=== PATIENT | female | born 1935 | race Caucasian/White ===

== ENCOUNTER 2017-12-22 14:28 | Emergency (ER) | payer MEDICARE, OTHER ==
[~2017-12-22] VITALS: Ht 165.1 cm; Wt 77.0 kg
[2017-12-22 14:52] VITALS: BP 120/63; PULSE 84; RESP 16; TEMP 98.5; O2SAT 100
--- NOTE | 2017-12-22 15:15 | RADRPT ---
EXAM DATE/TIME: 12/22/2017 15:11 [facility] COMPARISON: No previous studies available for comparison. INDICATIONS : Syncope with chest pain and shortness of breath. MEDICAL HISTORY : None. SURGICAL HISTORY : None. ENCOUNTER: Initial ACUITY: 2 days PAIN SCORE: 6/10 LOCATION: middle chest. FINDINGS: PA and lateral views of the chest shows some deformity to the right infralateral ribs with underlying pleural thickening. The lungs are otherwise clear. They are hyperinflated. No effusions or infiltrat es. Heart is normal in size. Scoliotic spine with compression fracture at the thoracolumbar junction. There is near vertebra plana. CONCLUSION: 1. Prior trauma involving the inferior right chest. 2. Hyperinflation suggesting COPD. 3. Age-indeterminate compression fracture at the thoracolumbar junction. Maurilio Gomez Jr., MD on December 22, 2017 at 15:11 Board Certified Radiologist. This report was verified electronically.
[2017-12-22 17:29] LABS: AUTOMATED NEUTROPHIL # 4.7 TH/MM3 (1.8-7.7); BASOPHIL # 0.1 TH/MM3 (0-0.2); BASOPHIL % 0.8 % (0.0-2.0); EOSINOPHIL # 0.2 TH/MM3 (0-0.4); EOSINOPHIL % 2.4 % (0.0-4.0); HEMOGLOBIN 13.4 GM/DL (11.6-15.3); LYMPHOCYTE # 2.2 TH/MM3 (1.0-4.8); MEAN CELL VOLUME 90.9 FL (80.0-100.0); MEAN CORPUSCULAR HEMOGLOBIN 31.1 PG (27.0-34.0); MEAN CORPUSCULAR HGB CONC 34.3 % (32.0-36.0); MEAN PLATELET VOLUME 8.1 FL (7.0-11.0); MONO % 8.9 % (0.0-8.0); MONOCYTE # 0.7 TH/MM3 (0-0.9); NEUT % 59.9 % (16.0-70.0); PLATELET COUNT 232 TH/MM3 (150-450); RED BLOOD COUNT 4.29 MIL/MM3 (4.00-5.30); RED CELL DISTRIBUTION WIDTH 13.6 % (11.6-17.2); WHITE BLOOD COUNT 7.9 TH/MM3 (4.0-11.0)
[2017-12-22 17:50] LABS: BICARBONATE 22.3 MEQ/L (21.0-32.0); CALCIUM 9.1 MG/DL (8.5-10.1); CREATININE 0.68 MG/DL (0.50-1.00)
[2017-12-22 19:31] VITALS: BP 153/71; PULSE 72; RESP 16; O2SAT 92
--- NOTE | 2017-12-22 20:04 | PD ---
HPI Chief Complaint: Altered Mental Status Time Seen by Provider: 19:31 Travel History International Travel<30 days: No Contact w/Intl Traveler<30days: No Traveled to known affect area: No History of Present Illness HPI Patient is an 82-year-old female on vacation from [facility] she reports that 2 days ago she got very weak leg shaking feeling in her legs. " Like I was walking on rolling logs " Denies vertigo . then it recurred today while walking on the street here in [facility].. She had eaten lunch no problems. She was walking on the street and reported to her daughter she couldn't walk because her legs felt wobbly. The daughter reports there was no diaphoresis no chest pain or shortness of breath. No signs of ataxia. Patient had no obvious symptoms but reported the feeling of shaky wobbly legs. 3 days prior the patient fell and landed on her right forearm and has a fracture of the radius with a component intra-articular. She is in a synthetic splint with a sling the right forearm. They want to wait until going back to [facility] to get a definitive cast and see an orthopedist. Patient is on a blood pressure med which she is unclear of the name.. She has not taken it for 4 days. They went to urgent care earlier today they had an EKG which showed left bundle branch block. She is not sure if this is old or new. Patient denies chest pain. She was sent to the ER from urgent care for TIA to rule out with a CAT scan in the ER. She says she feels fine she was in the waiting room for a few hours and says she feels completely normal once to go home. Her friend and daughter is bedside [facility] Past Medical History Cardiovascular Problems: Yes Hypertension: Yes Tetanus Vaccination: Unknown Past Surgical History Tonsillectomy: Yes Social History Alcohol Use: Yes (daily) Tobacco Use: No Substance Use: No Allergies-Medications (Allergen,Severity, Reaction): Coded Allergies: Sulfa (Sulfonamide Antibiotics) (Verified Allergy, Unknown, 12/22/17) Review of Systems Except as stated in HPI: all other systems reviewed are Neg Musculoskeletal: Positive: Myalgias, Weakness Physical Exam Narrative GENERAL: pt looks awake alert non toxic in a right arm sling SKIN: Warm and dry. HEAD: Atraumatic. Normocephalic. EYES: Pupils equal and round. No scleral icterus. No injection or drainage. ENT: No nasal bleeding or discharge. Mucous membranes pink and moist. NECK: Trachea midline. No JVD. CARDIOVASCULAR: Regular rate and rhythm. RESPIRATORY: No accessory muscle use. Clear to auscultation. Breath sounds equal bilaterally. GASTROINTESTINAL: Abdomen soft, non-tender, nondistended. Hepatic and splenic margins not palpable. MUSCULOSKELETAL: Extremities she has 5 out of 5 strength in all extremities however the right arm is in a sling and a splint unable to fully measured the strength however sensation is intact . NEUROLOGICAL: Awake and alert. No obvious cranial nerve deficits. Motor grossly within normal limits. Five out of 5 muscle strength in the arms and legs. Normal speech. Neurological exam she has symmetric smile symmetric shoulders drug sensation is equal and face bilateral legs bilateral arms bilateral No sensory or motor deficit PSYCHIATRIC: Appropriate mood and affect; insight and judgment normal. Data Data Last Documented VS Vital Signs Date Time Temp Pulse Resp B/P (MAP) Pulse Ox O2 Delivery O2 Flow Rate FiO2 12/22/17 22:38 12/22/17 22:11 79 18 89 18 85 18 12/22/17 19:31 92 12/22/17 14:52 98.5 Orders Orders Blood Glucose (12/22/17 14:56) Complete Blood Count With Diff (12/22/17 14:56) Basic Metabolic Panel (Bmp) (12/22/17 14:56) Blood Culture (12/22/17 14:56) Lactic Acid (12/22/17 14:56) Chest, Pa & Lat (12/22/17 ) Electrocardiogram (12/22/17 ) Troponin I (12/22/17 19:58) Ct Brain W/O Iv Contrast(Rout) (12/22/17 ) Orthostatic Vital Signs (12/22/17 22:04) Comprehensive Metabolic Panel (12/22/17 22:06) Ed Discharge Order (12/22/17 22:22) Thyroid Stimulating Hormone (12/22/17 22:06) Labs Laboratory Tests Test 12/22/17 16:50 12/22/17 20:28 White Blood Count 7.9 TH/MM3 Red Blood Count 4.29 MIL/MM3 Hemoglobin 13.4 GM/DL Hematocrit 39.0 % Mean Corpuscular Volume 90.9 FL Mean Corpuscular Hemoglobin 31.1 PG Mean Corpuscular Hemoglobin Concent 34.3 % Red Cell Distribution Width 13.6 % Platelet Count 232 TH/MM3 Mean Platelet Volume 8.1 FL Neutrophils (%) (Auto) 59.9 % Lymphocytes (%) (Auto) 28.0 % Monocytes (%) (Auto) 8.9 % Eosinophils (%) (Auto) 2.4 % Basophils (%) (Auto) 0.8 % Neutrophils # (Auto) 4.7 TH/MM3 Lymphocytes # (Auto) 2.2 TH/MM3 Monocytes # (Auto) 0.7 TH/MM3 Eosinophils # (Auto) 0.2 TH/MM3 Basophils # (Auto) 0.1 TH/MM3 CBC Comment DIFF FINAL Differential Comment Blood Urea Nitrogen 19 MG/DL 19 MG/DL Creatinine 0.68 MG/DL 0.67 MG/DL Random Glucose 114 MG/DL 100 MG/DL Calcium Level 9.1 MG/DL 8.6 MG/DL Sodium Level 138 MEQ/L 140 MEQ/L Potassium Level 3.9 MEQ/L 3.9 MEQ/L Chloride Level 105 MEQ/L 108 MEQ/L Carbon Dioxide Level 22.3 MEQ/L 20.4 MEQ/L Anion Gap 11 MEQ/L 12 MEQ/L Estimat Glomerular Filtration Rate 83 ML/MIN 84 ML/MIN Lactic Acid Level 1.2 mmol/L Total Protein 6.8 GM/DL Albumin 3.7 GM/DL Alkaline Phosphatase 94 U/L Aspartate Amino Transf (AST/SGOT) 16 U/L Alanine Aminotransferase (ALT/SGPT) 35 U/L Total Bilirubin 0.4 MG/DL Troponin I LESS THAN 0.02 NG/ML Thyroid Stimulating Hormone 3rd Gen 3.240 uIU/ML MDM Medical Decision Making Medical Screen Exam Complete: Yes Emergency Medical Condition: Yes Differential Diagnosis TIA vs cardiac vs hypoglycemia vs hypokalemia other Narrative Course CT of head was negative labs and negative potassium is normal EKG is left bundle branch is what she had before and troponin is negative she is safe to go her orthostatics were stable she did not have any hypotension no dizziness no leg wobbling feeling discharge home follow-up as an outpatient Diagnosis Primary Impression: Weakness Patient Instructions: General Instructions, Weakness (ED) Disposition: 01 DISCHARGE HOME Condition: Good Sujit Bender MD Dec 22, 2017 20:04
--- NOTE | 2017-12-22 21:04 | RADRPT ---
EXAM DATE/TIME: 12/22/2017 20:27 [facility] COMPARISON: No previous studies available for comparison. INDICATIONS : Altered mental status. RADIATION DOSE: 32.49 CTDIvol (mGy) MEDICAL HISTORY : Hypertension. SURGICAL HISTORY : None. ENCOUNTER: Initial ACUITY: 1 day PAIN SCALE: 0/10 LOCATION: cranial TECHNIQUE: Multiple contiguous axial images were obtained of the head. Using automated exposure control and adj ustment of the mA and/or kV according to patient size, radiation dose was kept as low as reasonably a chievable to obtain optimal diagnostic quality images. DICOM format image data is available electro nically for review and comparison. FINDINGS: CEREBRUM: The ventricles are normal for age. No evidence of midline shift, mass lesion, hemorrhage or acute in farction. No extra-axial fluid collections are seen. POSTERIOR FOSSA: The cerebellum and brainstem are intact. The 4th ventricle is midline. The cerebellopontine angle i s unremarkable. EXTRACRANIAL: The visualized portion of the orbits is intact. SKULL: The calvaria is intact. No evidence of skull fracture. CONCLUSION: No acute disease. Guille Guzmán MD on December 22, 2017 at 21:01 Board Certified Radiologist. This report was verified electronically.
[2017-12-22 22:11] VITALS: BP_SYST 164; BP_SYST 174; BP_SYST 184; BP_DIAS 77; BP_DIAS 81; BP_DIAS 83; RESP 18
[2017-12-23 01:54] LABS: ALBUMIN 3.7 GM/DL (3.4-5.0); ALT (GPT) 35 U/L (10-53); AST (GOT) 16 U/L (15-37); BICARBONATE 20.4 MEQ/L (21.0-32.0); BLOOD UREA NITROGEN 19 MG/DL (7-18); CALCIUM 8.6 MG/DL (8.5-10.1); CHLORIDE 108 MEQ/L (98-107); CREATININE 0.67 MG/DL (0.50-1.00); GLOMERULAR FILTRATION RATE 84 ML/MIN (>89); GLUCOSE,RANDOM 100 MG/DL (74-106); SODIUM (NA) 140 MEQ/L (136-145)
[2017-12-23 02:04] LABS: ALKALINE PHOSPHATASE 94 U/L (45-117); TOTAL BILIRUBIN ADULT 0.4 MG/DL (0.2-1.0); TOTAL PROTEIN 6.8 GM/DL (6.4-8.2)
--- NOTE | 2017-12-23 12:19 | EKG ---
Date Performed: 12/22/2017 Time Performed: 20:03:30 PTAGE: 82 years EKG: Sinus rhythm LEFT BUNDLE BRANCH BLOCK ABNORMAL ECG NO PREVIOUS TRACING DOCTOR: Clark Flores Interpretating Date/Time 12/23/2017 12:16:14
== END 2017-12-22 22:44 | disposition home or self-care (01) ==
LOC: NEPE 14:28
DX: R53.1 Weakness (principal); I44.7 Left bundle-branch block, unspecified; I10 Essential (primary) hypertension
CPT/HCPCS: 70450; 71046; 80048; 80053; 83605; 84443; 84484; 85025; 87040; 93005